=== PATIENT | female | born 1975 | race Two or more races ===

== ENCOUNTER 2020-12-12 11:01 | Observation (INO) | payer MEDICAID ==
[~2020-12-12] VITALS: Ht 157.5 cm; Wt 87.1 kg
[2020-12-12] MEDS ORDERED: LABE100T5 PO (12:09)
[2020-12-12] MEDS ORDERED: PNV1TABL50 MT (12:19)
[2020-12-12] MEDS ORDERED: FOLI0.4T6 MT (12:19)
[2020-12-12] MEDS ORDERED: LEVO200T8 PO (12:19)
[2020-12-12] MEDS ORDERED: LEVO25TA7 PO (12:19)
[2020-12-12] MEDS ORDERED: ASPI-1079 PO (12:19)
== END 2020-12-12 14:00 | disposition home or self-care (01) ==
LOC: 8 EST LDRP 11:01
PROVIDERS: ATTEND Obstetrics & Gynecology
DX: O36.8130 Decreased fetal movements, third trimester, not applicable or unspecified (principal); Z3A.34 34 weeks gestation of pregnancy
CPT/HCPCS: 59025; 76815; 76818; G0378; 99281